=== PATIENT | female | born 1980 | race Caucasian/White ===

== ENCOUNTER 2018-10-18 16:16 | Emergency (ER) | payer MEDICAID, OTHER ==
[~2018-10-18] VITALS: Ht 162.6 cm; Wt 76.2 kg
--- NOTE | 2018-10-18 16:38 | ED Back Pain ---
General Chief Complaint: Back Problems Stated Complaint: BACK PAIN Source of Information: Patient Exam Limitations: No Limitations History of Present Illness Date Seen by Provider: Oct 18, 2018 Time Seen by Provider: 16:22 Initial Comments The patient presents to ER by private conveyance with an acute exacerbation of her chronic back pain for the past 15 years. She says this is been going on 2-3 days and she's been using ibuprofen with her last dose being yesterday with minimal relief. She has no inciting incident, back surgery or recent trauma to her back. She is not having any numbness tingling, saddle anesthesia, incontinence or hesitancy of urine or bowels. She's not having falls or difficulty walking or weakness. She says she usually uses Lyrica for her back pain and that works well but because of several missed appointments with her primary care doctor Dr. sofia she has not been able to get this refilled. She has an appointment on the , 9 days from now. She has not been on steroids recently and does not have a history of heart disease diabetes, GERD or other reason she couldn't take NSAIDs or steroids. Allergies and Home Medications Patient Home Medication List Home Medication List Reviewed: Yes Review of Systems Constitutional: No chills, No diaphoresis EENTM: No ear discharge, No hearing loss Respiratory: No cough, No short of breath Cardiovascular: No chest pain, No edema Gastrointestinal: No abdominal pain, No constipation, No nausea Genitourinary: No discharge, No dysuria, No frequency, No hesitancy : No Musculoskeletal: see HPI, back pain Past Flpmrrb-Wknvmr-Knxuzp Hx Patient Social History Alcohol Use: Rarely Uses Recreational Drug Use: No Smoking Status: Current Everyday Smoker Type Used: Cigarettes (1 ppd) Physical Exam Vital Signs Capillary Refill : Height, Weight, BMI Height: '" Weight: lbs. oz. kg; BMI Method: General Appearance: No Apparent Distress, WD/WN HEENT: PERRL/EOMI, TMs Normal, Normal ENT Inspection, Pharynx Normal, Moist Mucous Membranes Neck: Full Range of Motion, Normal Inspection Cardiovascular: Regular Rate, Rhythm, No Edema, Normal Peripheral Pulses Respiratory: No Accessory Muscle Use, No Respiratory Distress Back: No Muscle Spasm; Vertebral Tenderness (lumbar spine midline without significant paraspinous tenderness or muscle spasm) Neurologic/Psychiatric: Alert, Oriented x3, No Motor/Sensory Deficits, Other (symmetrical 2 out of 4 deep tendon patellar reflexes bilaterally) Skin: Normal Color, Warm/Dry Progress/Results/Core Measures Results/Orders Lab Results Laboratory Tests Test 10/18/18 16:25 Range/Units My Orders Orders - JOSE DAVID SALAZAR Ua Culture If Indicated (10/18/18 16:21) Urine Bedside (10/18/18 16:21) Progress Progress Note : Time: 16:36 Progress Note We explained to her that while we will not be restarting her [facility] would be happy to provide her with Toradol, prescription Naprosyn and IM Depo-Medrol. We've encouraged back brace, heating pads and topical creams. We will also encourage her to keep her follow-up appointment with the primary care doctor. Departure Impression Primary Impression: Lumbago without sciatica Qualified Codes: M54.5 - Low back pain; G89.29 - Other chronic pain Disposition: HOME, SELF-CARE Condition: Stable Departure-Patient Inst. Decision time for Depature: 16:37 Referrals: SELF,SHANIKA ELENA (PCP/Family) Primary Care Physician Patient Instructions: Low Back Pain (DC) Add. 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 Use topical creams such as icy hot, Aspercreme or Biofreeze. Use heating pads as needed for back pain. Start using Tylenol 1000 mg every 8 hours as needed for back pain. 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 The steroid shot will start working in 12-24 hours and lasts for about 5-7 days. All discharge instructions reviewed with patient and/or family. Voiced understanding. Scripts Naproxen (Naprosyn) 500 Mg Tablet 500 MG PO BID for 14 Days, #30 TAB 0 Refills Prov: JOSE DAVID SALAZAR 10/18/18 JOSE DAVID SALAZAR Oct 18, 2018 16:38
[2018-10-18 16:39] LABS: BILIRUBIN,URINE NEGATIVE (NEGATIVE); CLARITY,URINE CLEAR; COLOR,URINE YELLOW; GLUCOSE, URINE (UA) NEGATIVE (NEGATIVE); KETONES,URINE NEGATIVE (NEGATIVE); LEUKOCYTE ESTERASE ,URINE NEGATIVE (NEGATIVE); NITRITE,URINE NEGATIVE (NEGATIVE); PH,URINE 6.5 (5-9); PROTEIN,URINE NEGATIVE (NEGATIVE); UROBILINOGEN,URINE 0.2 MG/DL (NORMAL); WBC,URINE 0-2 /HPF
[2018-10-18] MEDS ORDERED: NAPR-1071 PO (16:39)
[2018-10-18 16:40] LABS: BACTERIA,URINE TRACE /HPF
[2018-10-18] MEDS ORDERED: methylPREDNISolone 40 MG/ML (DEPO MEDROL) VIAL IM ONE (16:45)
[2018-10-18] MEDS ORDERED: KETOROLAC 60 MG/2 ML VIAL IM ONE (16:45)
[2018-10-18 17:38] VITALS: BP 140/88
[2018-10-18] MEDS ORDERED: QUET300T71 (17:58)
[2018-10-18] MEDS ORDERED: Seroquel (17:58)
[2018-10-18] MEDS ORDERED: BUSP10TA95 (17:58)
[2018-10-18] MEDS ORDERED: LAMO25TA8 (17:58)
== END 2018-10-18 17:35 | disposition home or self-care (01) ==
LOC: ER FS 16:18
DX: M54.5 Low back pain (principal); G89.29 Other chronic pain; F17.210 Nicotine dependence, cigarettes, uncomplicated
CPT/HCPCS: 81000; 99284

== ENCOUNTER 2018-12-23 16:57 | Emergency (ER) | payer MEDICAID ==
[~2018-12-23] VITALS: Wt 72.0 kg
[~2018-12-23 16:57] MED LIST: BUSP10TA95; LAMO25TA8; NAPR-1071 PO; QUET300T71; Seroquel
--- NOTE | 2018-12-23 17:16 | ED Cough/URI ---
General Chief Complaint: Cough/Cold/Flu Symptoms Stated Complaint: ITCHY THROAT, COUGH Source: patient Exam Limitations: no limitations History of Present Illness Date Seen by Provider: Dec 23, 2018 Time Seen by Provider: 17:00 Initial Comments The patient is a 38-year-old female who presents for evaluation of sore throat and cough over the last 3 weeks. She does smoke cigarettes. I did explain to the patient to stop smoking cigarettes. She states the cough is dry and nonproductive. She denies any hemoptysis, fevers or chills, chest pain, shortness of breath, abdominal or back pain, palpitations, nausea or vomiting, dizziness or syncope. She is alert and oriented 4, calm, and appears to be in no distress this time. She is here with her significant other who also has a cough. Timing/Duration: week (3 weeks) Severity/Quality: dry cough Associated Symptoms: cough, sore throat Allergies and Home Medications Allergies Coded Allergies: sulfamethoxazole (Verified Allergy, Unknown, 12/23/18) trimethoprim (Verified Allergy, Unknown, 12/23/18) Home Medications Naproxen 500 Mg Tablet, 500 MG PO BID Prescribed by: JOSE DAVID SALAZAR on 10/18/18 7919 Patient Home Medication List Home Medication List Reviewed: Yes Review of Systems Review of Systems Constitutional: no symptoms reported EENTM: throat pain Respiratory: cough Cardiovascular: no symptoms reported Gastrointestinal: no symptoms reported Genitourinary: no symptoms reported Musculoskeletal: no symptoms reported Skin: no symptoms reported Psychiatric/Neurological: No Symptoms Reported Hematologic/Lymphatic: No Symptoms Reported Immunological/Allergic: no symptoms reported All Other Systems Reviewed Negative Unless Noted: Yes Past Krjmxue-Czhzve-Fcmpxd Hx Past Med/Social Hx: Reviewed Nursing Past Med/Soc Hx Patient Social History Type Used: Cigarettes Recent Foreign Travel: No Contact w/Someone Who Travel: No Recent Hopitalizations: No Seasonal Allergies Seasonal Allergies: No Past Medical History Surgeries: No Respiratory: No Cardiac: No Neurological: No Genitourinary: No Gastrointestinal: No Musculoskeletal: Yes Chronic Back Pain Endocrine: No HEENT: No Cancer: No Psychosocial: Yes Depression Integumentary: No Blood Disorders: No Physical Exam Vital Signs - First Documented Capillary Refill : Height: 5'4.00" Weight: 168lbs. oz. 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, no motor/sensory deficits, alert, normal mood/affect, oriented x 3 Skin: normal color, warm/dry Progress/Results/Core Measures Suspected Sepsis SIRS Temperature: Pulse: Respiratory Rate: Blood Pressure / Mean: Results/Orders Lab Results Laboratory Tests Test 12/23/18 17:10 Range/Units Group A Streptococcus Screen NEGATIVE NEGATIVE My Orders Orders - YA GARY DO Rapid Strep A Screen (12/23/18 17:00) Vital Signs/I&O 12/23/18 12/23/18 17:08 17:08 Temp 36.5 Pulse 93 Resp 20 B/P (MAP) 120/82 (95) Pulse Ox 97 O2 Delivery Room Air Room Air Capillary Refill : Progress Note : Progress Note @1740 - Patient updated on lab results which are unremarkable. The patient will go home with a prescription for Augmentin for a sinus infection. Advised patient to stop smoking and follow-up with her PCP in the next 1-2 days. Advised patient to return to the emergency Department immediately for new or worsening symptoms. Workup today fails to reveal any emergent pathology and the patient is stable for discharge. Departure Impression Primary Impression: Acute sinusitis Additional Impressions: Acute URI Pharyngitis Tobacco abuse Disposition: HOME, SELF-CARE Condition: Stable Departure-Patient Inst. Referrals: SELF,SHANIKA ELENA (PCP/Family) Primary Care Physician Patient Instructions: Acute Bronchitis, Adult (DC), Sinusitis, Adult (DC), Quitting Smoking, Viral Pharyngitis (DC) Add. Discharge Instructions: Take the prescribed medicine as directed. Follow-up with your doctor in the next 2-3 days[facility]. Stop smoking. Scripts Amoxicillin/Potassium Clav (Augmentin 875-125 Tablet) 1 Each Tablet 1 EACH PO BID for acute sinusitis for 10 Days, #20 TAB 0 Refills Prov: YA GARY DO 12/23/18 YA GARY DO Dec 23, 2018 17:16
[2018-12-23] MEDS ORDERED: AMOX-358 PO (17:45)
[2018-12-23 18:00] VITALS: BP 120/82
== END 2018-12-23 18:04 | disposition home or self-care (01) ==
LOC: EDUNIT# 16:57 → ER FS 16:58
DX: J01.90 Acute sinusitis, unspecified (principal); J02.9 Acute pharyngitis, unspecified; F32.9 Major depressive disorder, single episode, unspecified; F17.210 Nicotine dependence, cigarettes, uncomplicated; Z88.2 Allergy status to sulfonamides; Z88.1 Allergy status to other antibiotic agents
CPT/HCPCS: 87430; 99284

== ENCOUNTER 2019-07-17 15:20 | Emergency (ER) | payer MEDICAID ==
[~2019-07-17] VITALS: Ht 163 cm; Wt 67.6 kg
[~2019-07-17 15:20] MED LIST changes: +AMOX-358 PO
--- OUTSIDE RECORDS SUMMARY | 2019-07-17 15:27 | XMS REPORT | Continuity of Care Document ---
Author Organization Unknown Address Unknown Phone Unavailable Allergies Active Description Code Type Severity Reaction Onset Reported/Identified Relationship to Patient Clinical Status Yes No Known Drug Allergies [id number] Drug Allergy Unknown N/A 10/18/2018 Yes sulfamethoxazole [id number] Drug Allergy Unknown N/A 12/23/2018 Yes trimethoprim [id number] Drug Allergy Unknown N/A 12/23/2018 Medications There is no data. Problems Date Dx Coded Attending Type Code Diagnosis Diagnosed By 10/18/2018 JOSE DAVID SALAZAR MD Ot F17.210 NICOTINE DEPENDENCE, CIGARETTES, UNCOMPL 10/18/2018 JOSE DAVID SALAZAR MD Ot G89. 29 OTHER CHRONIC PAIN 10/18/2018 JOSE DAVID SALAZAR MD Ot M54. 5 LOW BACK PAIN 10/18/2018 JOSE DAVID SALAZAR MD Ot M54. 9 DORSALGIA, UNSPECIFIED 10/21/2018 JOSE DAVID SALAZAR MD Ot F17.210 NICOTINE DEPENDENCE, CIGARETTES, UNCOMPL 10/21/2018 JOSE DAVID SALAZAR MD Ot G89. 29 OTHER CHRONIC PAIN 10/21/2018 JOSE DAVID SALAZAR MD Ot M54. 5 LOW BACK PAIN 10/21/2018 JOSE DAVID SALAZAR MD Ot M54. 9 DORSALGIA, UNSPECIFIED 10/28/2018 JOSE DAVID SALAZAR MD Ot F17.210 NICOTINE DEPENDENCE, CIGARETTES, UNCOMPL 10/28/2018 JOSE DAVID SALAZAR MD Ot G89. 29 OTHER CHRONIC PAIN 10/28/2018 JOSE DAVID SALAZAR MD Ot M54. 5 LOW BACK PAIN 10/28/2018 JOSE DAVID SALAZAR MD Ot M54. 9 DORSALGIA, UNSPECIFIED 12/23/2018 COOKIE PANDYA DO Ot F17.210 NICOTINE DEPENDENCE, CIGARETTES, UNCOMPL 12/23/2018 COOKIE PANDYA DO Ot F32. 9 MAJOR DEPRESSIVE DISORDER, SINGLE EPISOD 12/23/2018 COOKIE PANDYA DO Ot J01. 90 ACUTE SINUSITIS, UNSPECIFIED 12/23/2018 YA LUTZ COOKIE B Ot J02. 9 ACUTE PHARYNGITIS, UNSPECIFIED 12/23/2018 COOKIE PANDYA DO Ot R05 COUGH 12/23/2018 COOKIE PANDYA DO Ot Z88. 1 ALLERGY STATUS TO OTHER ANTIBIOTIC AGENT 12/23/2018 YA LUTZ COOKIE B Ot Z88. 2 ALLERGY STATUS TO SULFONAMIDES STATUS 12/28/2018 COOKIE PANDYA DO Ot F17.210 NICOTINE DEPENDENCE, CIGARETTES, UNCOMPL 12/28/2018 COOKIE PANDYA DO Ot F32. 9 MAJOR DEPRESSIVE DISORDER, SINGLE EPISOD 12/28/2018 COOKIE PANDYA DO Ot J01. 90 ACUTE SINUSITIS, UNSPECIFIED 12/28/2018 COOKIE PANDYA DO Ot J02. 9 ACUTE PHARYNGITIS, UNSPECIFIED 12/28/2018 YA LUTZ COOKIE B Ot R05 COUGH 12/28/2018 YA LUTZ COOKIE B Ot Z88. 1 ALLERGY STATUS TO OTHER ANTIBIOTIC AGENT 12/28/2018 COOKIE PANDYA DO Ot Z88. 2 ALLERGY STATUS TO SULFONAMIDES STATUS Procedures There is no data. Results Test Result Range Complete urinalysis with reflex to cultu re - 10/18/18 16:25 Urine color determination YELLOW NRG Urine clarity determination CLEAR NR G Urine pH measurement by test strip 6.5 5-9 Specific gravity of urine by test strip <= 1.016-1.022 Urine protein assay by test strip, semi-quantitative NEGATIVE NEGATIVE Urine glucose detection by automated test strip NE GATIVE NEGATIVE Erythrocytes detection in urine sediment by light micr oscopy NEGATIVE NEGATIVE Urine ketones detection by automated test strip NE GATIVE NEGATIVE Urine nitrite detection by test strip NEGATIVE NEGATIVE Urine total bilirubin detection by test strip NEGA TIVE NEGATIVE Urine urobilinogen measurement by automated test strip (mass/volume) 0.2 mg/dL NORMAL Urine leukocyte esterase detection by dipstick NEG ATIVE NEGATIVE Automated urine sediment erythrocyte cou nt by microscopy (number/high power field) NONE NRG Automated urine sediment leukocyte count by microscopy (number/high power field) [HPF] NRG Bacteria detection in urine sediment by light microsco py TRACE NRG Squamous epithelial cells detection in u rine sediment by light microscopy 10-25 NRG Crystals detection in urine sediment by light microsco py NONE NRG Casts detection in urine sediment by light microscopy NONE NRG Mucus detection in urine sediment by light microscopy NEGATIVE NRG Complete urinalysis with reflex to culture NO NRG CMP - 10/27/18 16:28 GLUCOSE 84 mg/dL 65-99 UREA NITROGEN (BUN) 9 mg/dL 7-25 CREATININE 0.80 mg/dL 0.50-1.10 eGFR NON-AFR. UZBEK 93 mL/min/1.73m2 > OR = 60 eGFR 108 mL/min/1.73m2 > OR = 60 BUN/CREATININE RATIO NOT APPLICABLE (calc) 6-22 SODIUM 141 mmol/L 135-146 POTASSIUM 4.0 mmol/L 3.5-5.3 CHLORIDE 106 mmol/L 98-110 CARBON DIOXIDE 28 mmol/L 20-32 CALCIUM 9.4 mg/dL 8.6-10.2 PROTEIN, TOTAL 6.5 g/dL 6.1-8.1 ALBUMIN 3.9 g/dL 3.6-5.1 GLOBULIN 2.6 g/dL (calc) 1.9-3.7 ALBUMIN/GLOBULIN RATIO 1.5 (calc) 1.0-2. 5 BILIRUBIN, TOTAL 0.3 mg/dL 0.2-1.2 ALKALINE PHOSPHATASE 49 U/L 33-115 AST 13 U/L 10-30 ALT 13 U/L 6-29 VITAMIN D, 25-H - 10/27/18 16:28 VITAMIN D,25-OH,TOTAL,IA 27 ng/mL 30-10 0 Streptococcus pyogenes antigen detection - 12/23/18 17:10 Streptococcus pyogenes antigen detection NEGATIVE NEGATIVE Bacterial throat culture - 12/23/18 17:1 0 Bacterial throat culture NBS NRG Encounters ACCT No. Visit Date/Time Discharge Status Pt. Type Provider Facility Loc./Unit Complaint [id number] 06/14/2019 13:30:00 06/14/2019 23:59: 59 [facility] [id number] 10/27/2018 16:00:00 Document Registration [id number] 12/23/2018 16:58:00 18:04:00 DIS Emergency COOKIE PANDYA DO [facility] ER FS ITCHY THROAT, COUGH [id number] 10/18/2018 16:18:00 17:35:00 DIS Emergency JOSE DAVID SALAZAR MD [facility] ER FS BACK PAIN
--- NOTE | 2019-07-17 15:35 | ED Abdominal Pain ---
General Chief Complaint: Abdominal/GI Problems Stated Complaint: ABD PAIN Nursing Triage Note: Patient reports LLQ abdomen pain x 1 week reports emesis x 1 this morning. states had coitus last evening and had a spot of blood in her underwear this morning Sepsis Screen: No Definite Risk Source of Information: Patient, Old Records, RN/MD, RN Notes Reviewed Exam Limitations: No Limitations History of Present Illness Date Seen by Provider: July 17, 2019 Time Seen by Provider: 15:25 Initial Comments This patient is a 38-year-old female that presents to the emergency department complaining of lower abdominal pain on the left. Patient stasis me waxing and waning for the past 5 days. It seems to just be nagging. Patient's describes little bit of loose stool which she tries to have a bowel movement which is a little bit and has had this multiple times. Last bowel movement was this morning. Patient does have a history of your bowel syndrome. Patient does not appear to be acutely sick. We will do medical evaluation treatment is needed. Timing/Duration: 5-6 Days Severity/Quality: Mild Location: LLQ Radiation: No Radiation Allergies and Home Medications Allergies Coded Allergies: sulfamethoxazole (Verified Allergy, Unknown, 12/23/18) trimethoprim (Verified Allergy, Unknown, 12/23/18) Home Medications Amoxicillin/Potassium Clav 1 Each Tablet, 1 EACH PO BID Prescribed by: YA GARY on 12/23/18 1745 Naproxen 500 Mg Tablet, 500 MG PO BID Prescribed by: JOSE DAVID SALAZAR on 10/18/18 1639 Patient Home Medication List Home Medication List Reviewed: Yes Review of Systems Review of Systems Constitutional: No no symptoms reported; see HPI; No chills, No diaphoresis, No dizziness, No fever, No malaise, No weakness, No weight gain, No weight loss, No other EENTM: No No Symptoms Reported, No See HPI, No Blurred Vision, No Double Vision, No Eye Pain, No Eye Tearing, No Ear Drainage, No Ear Pain, No Mouth Pain, No Mouth Swelling, No Nose Congestion, No Nose Pain, No Throat Pain, No Throat Swelling, No Other Respiratory: Denies No Symptoms Reported, Denies See HPI, Denies Cough, Denies Orthopnea, Denies Shortness of Air, Denies SOA With Exertion, Denies SOA at Rest, Denies Stridor, Denies Wheezing, Denies Other Cardiovascular: Denies No Symptoms Reported, Denies See HPI, Denies Chest Pain, Denies Edema, Denies Irregular Heart Rate, Denies Lightheadedness, Denies Palpitations, Denies Syncope, Denies Other Gastrointestinal: See HPI, Abdominal Pain, Constipated, Diarrhea All Other Systems Reviewed Negative Unless Noted: Yes Past Deobvdx-Pivwes-Bbimof Hx Patient Social History Alcohol Use: Denies Use Recreational Drug Use: No Type Used: Cigarettes 2nd Hand Smoke Exposure: Yes Recent Foreign Travel: No Contact w/Someone Who Travel: No Recent Infectious Disease Expo: No Recent Hopitalizations: No Seasonal Allergies Seasonal Allergies: No Past Medical History Surgeries: No Respiratory: No Cardiac: No Neurological: No Genitourinary: No Gastrointestinal: No Musculoskeletal: Yes Chronic Back Pain Endocrine: No HEENT: No Cancer: No Psychosocial: Yes Depression Integumentary: No Blood Disorders: No Physical Exam Vital Signs Vital Signs - First Documented 07/17/19 15:26 Temp 37.2 Pulse 99 Resp 18 B/P (MAP) 127/86 (100) Pulse Ox 97 Capillary Refill : Less Than 3 Seconds Height/Weight/BMI Height: 5'4.00" Weight: 168lbs. oz. 76.323715fu; 25.00 BMI Method:Stated General Appearance: WD/WN, no apparent distress HEENT: PERRL/EOMI, normal ENT inspection, TMs normal, pharynx normal Neck: non-tender, full range of motion, supple, normal inspection Respiratory: chest non-tender, lungs clear, normal breath sounds, no respiratory distress, no accessory muscle use Cardiovascular: normal peripheral pulses, regular rate, rhythm, no edema, no gallop, no JVD, no murmur Gastrointestinal: normal bowel sounds, non tender, soft, no organomegaly, no pulsatile mass Extremities: normal range of motion, non-tender, normal inspection, no pedal edema, no calf tenderness, normal capillary refill Skin: normal color, warm/dry Progress/Results/Core Measures Results/Orders Lab Results Laboratory Tests Test 07/17/19 16:05 Range/Units Urine Color YELLOW Urine Clarity CLEAR Urine pH 8.0 5-9 Urine Specific [place] 1.015 L 1.016-1.022 Urine Protein NEGATIVE NEGATIVE Urine Glucose (UA) NEGATIVE NEGATIVE Urine Ketones TRACE H NEGATIVE Urine Nitrite NEGATIVE NEGATIVE Urine Bilirubin NEGATIVE NEGATIVE Urine Urobilinogen 2.0 < = 1.0 MG/DL Urine Leukocyte Esterase NEGATIVE NEGATIVE Urine RBC (Auto) NEGATIVE NEGATIVE Urine RBC NONE /HPF Urine WBC NONE /HPF Urine Squamous Epithelial Cells 5-10 /HPF Urine Crystals NONE /LPF Urine Bacteria TRACE /HPF Urine Casts NONE /LPF Urine Mucus NONE /LPF Urine Culture Indicated NO Urine Opiates Screen NEGATIVE NEGATIVE Urine Oxycodone Screen NEGATIVE NEGATIVE Urine Methadone Screen NEGATIVE NEGATIVE Urine Propoxyphene Screen NEGATIVE NEGATIVE Urine Barbiturates Screen NEGATIVE NEGATIVE Ur Tricyclic Antidepressants Screen NEGATIVE NEGATIVE Urine Phencyclidine Screen NEGATIVE NEGATIVE Urine Amphetamines Screen NEGATIVE NEGATIVE Urine Methamphetamines Screen NEGATIVE NEGATIVE Urine Benzodiazepines Screen NEGATIVE NEGATIVE Urine Cocaine Screen NEGATIVE NEGATIVE Urine Cannabinoids Screen NEGATIVE NEGATIVE My Orders Orders - NELLY PANG MD Abdomen Flat & Upright/Decub (07/17/19 15:31) Urinalysis (07/17/19 15:31) Hcg,Quantitative (07/17/19 15:35) Drug Screen Stat (Urine) (07/17/19 15:41) Vital Signs/I&O 07/17/19 15:26 Temp 37.2 Pulse 99 Resp 18 B/P (MAP) 127/86 (100) Pulse Ox 97 Blood Pressure Mean: 100 Progress Progress Note : Time: 16:35 Progress Note Negative evaluation in the emergency department. Patient has long history of irritable bowel syndrome. We'll place the patient on Bentyl as needed for abdominal pain. Patient's encourage by mouth fluids soft mechanical diet. Follow-up with PCP in 2-3 days. High-fiber diet. Departure Impression Primary Impression: Abdominal pain Additional Impression: IBS (irritable bowel syndrome) Disposition: 01 HOME, SELF-CARE Condition: Stable Departure-Patient Inst. Decision time for Depature: 16:41 Referrals: SHANIKA RODRIGUEZ MD (PCP/Family) Primary Care Physician Patient Instructions: Irritable Bowel Syndrome (DC), IBS Diet Add. Discharge Instructions: We'll place the patient on Bentyl as needed for abdominal pain. Patient's encourage by mouth fluids soft mechanical diet. Follow-up with PCP in 2-3 days. High-fiber diet. All discharge instructions reviewed with patient and/or family. Voiced understa nding. Scripts Dicyclomine HCl (Dicyclomine HCl) 20 Mg Tablet 20 MG PO BID for 10 Days, #20 TAB 0 Refills Prov: NELLY PANG MD 07/17/19 NELLY PANG MD July 17, 2019 15:35
[2019-07-17 16:20] LABS: BACTERIA,URINE TRACE /HPF; BILIRUBIN,URINE NEGATIVE (NEGATIVE); CLARITY,URINE CLEAR; COLOR,URINE YELLOW; GLUCOSE, URINE (UA) NEGATIVE (NEGATIVE); KETONES,URINE TRACE (NEGATIVE); LEUKOCYTE ESTERASE ,URINE NEGATIVE (NEGATIVE); NITRITE,URINE NEGATIVE (NEGATIVE); PROTEIN,URINE NEGATIVE (NEGATIVE)
[2019-07-17 16:25] LABS: AMPHETAMINE SCREEN, URINE NEGATIVE (NEGATIVE); BARBITURATE SCREEN URINE NEGATIVE (NEGATIVE); BENZODIAZEPINES SCREEN URINE NEGATIVE (NEGATIVE); CANNABINOID SCREEN, URINE NEGATIVE (NEGATIVE); COCAINE SCREEN URINE NEGATIVE (NEGATIVE); METHADONE STAT NEGATIVE (NEGATIVE); METHAMPHETAMINE SCREEN URINE S NEGATIVE (NEGATIVE); OPIATE SCREEN URINE NEGATIVE (NEGATIVE); OXYCODONE STAT NEGATIVE (NEGATIVE); PROPOXYPHENE STAT NEGATIVE (NEGATIVE); TRICYCLIC ANTIDEPRESSANTS SCRE NEGATIVE (NEGATIVE)
--- NOTE | 2019-07-17 16:26 | Diagnostic Imaging Report ---
INDICATION: Left lower quadrant abdominal pain x 1 week. Emesis. TECHNIQUE: Supine and upright view of the abdomen, 4:14 p.m. CORRELATION STUDY: None. FINDINGS: Imaging of the abdomen demonstrates the bowel gas pattern to be unremarkable and without evidence for obstruction. A few scattered gas-filled loops of small bowel are present. No significant differential air-fluid levels. No evidence for free air. No pathologic intraabdominal calcifications. IMPRESSION: Nonobstructive appearing bowel gas pattern. Mild ileus pattern not excluded. Dictated by: Dictated on workstation # [id number]
[2019-07-17] MEDS ORDERED: DICY20TA10 PO (16:44)
[2019-07-17 16:48] VITALS: BP 127/86
== END 2019-07-17 16:48 | disposition home or self-care (01) ==
LOC: EDUNIT# 15:20 → ER FS 15:22
DX: K58.9 Irritable bowel syndrome, unspecified (principal); Z88.2 Allergy status to sulfonamides; Z88.1 Allergy status to other antibiotic agents; Z77.22 Contact with and (suspected) exposure to environmental tobacco smoke (acute) (chronic)
CPT/HCPCS: 74019; 80306; 81000

== ENCOUNTER 2019-11-07 16:45 | Emergency (ER) | payer MEDICAID ==
[~2019-11-07] VITALS: Ht 162.6 cm; Wt 67.3 kg
[~2019-11-07 16:45] MED LIST changes: +DICY20TA10 PO
[2019-11-07] MEDS ORDERED: NS IV 1000 ML 1,000 ML IV SCH (17:13)
[2019-11-07] MEDS ORDERED: ACETAMINOPHEN 500 MG TAB (TYLENOL) PO ONE (17:15)
[2019-11-07] MEDS ORDERED: PROMETHAZINE INJ 25 MG/ML (PHENERGAN) AMP IVP ONE (17:15)
[2019-11-07 17:52] LABS: BACTERIA,URINE MODERATE /HPF; BILIRUBIN,URINE NEGATIVE (NEGATIVE); CLARITY,URINE CLEAR; COLOR,URINE DARK YELLOW; GLUCOSE, URINE (UA) NEGATIVE (NEGATIVE); KETONES,URINE 1+ (NEGATIVE); LEUKOCYTE ESTERASE ,URINE NEGATIVE (NEGATIVE); NITRITE,URINE NEGATIVE (NEGATIVE); PROTEIN,URINE NEGATIVE (NEGATIVE)
[2019-11-07 17:53] LABS: SQUAMOUS EPITHELIAL CELL,UR 25-50 /HPF
[2019-11-07 18:04] LABS: POTASSIUM 4.1 MMOL/L (3.6-5.0); SODIUM 139 MMOL/L (135-145)
[2019-11-07 18:05] LABS: BUN/CREATININE RATIO 11; CALCIUM 8.8 MG/DL (8.5-10.1); CARBON DIOXIDE 20 MMOL/L (21-32); CHLORIDE 106 MMOL/L (98-107); CREATININE SERUM 0.54 MG/DL (0.60-1.30); GFR ESTIMATED > 60; GLUCOSE 85 MG/DL (70-105)
--- NOTE | 2019-11-07 19:32 | ED General ---
General Chief Complaint: Female Reproductive Nursing Triage Note: Patient states she is 9 weeks with twins, states she has been nauseous today and unable to keep down any fluids. She states she began having lower abdominal cramping early this morning. She states she has had cramping similar to this during this when she becomes dehydrated. She denies any vaginal bleeding. Nursing Sepsis Screen: No Definite Risk History of Present Illness Date Seen by Provider: Nov 07, 2019 Time Seen by Provider: 17:00 Initial Comments The patient is a 39-year-old female who is currently about 9 weeks estimated gestational age by ultrasound dating with a twin . She presents for evaluation of nausea with 2 episodes of nonbloody vomiting and decreased by mouth intake since earlier today. Associated crampy lower quadrant abdominal discomfort intermittently today, although none now. No associated fevers, hematemesis, hematochezia, melena, upper respiratory congestion/rhinorrhea, cough, shortness of breath or chest pain of any kind, right-sided abdominal pain, flank pain, midline back pain, dysuria or hematuria, vaginal discharge or bleeding, changes in bowel habits. Patient has close follow-up with obstetrics immediately after the long weekend. No therapy within the 6-8 hours prior to arrival. Patient tried some Tylenol this morning and states it was not fully effective. No antinausea medicine at home. Allergies and Home Medications Allergies Coded Allergies: sulfamethoxazole (Verified Allergy, Unknown, 12/23/18) trimethoprim (Verified Allergy, Unknown, 12/23/18) Home Medications Amoxicillin/Potassium Clav 1 Each Tablet, 1 EACH PO BID Prescribed by: YA GARY on 12/23/18 1745 Dicyclomine HCl 20 Mg Tablet, 20 MG PO BID Prescribed by: NELLY PANG on 07/17/19 1644 Naproxen 500 Mg Tablet, 500 MG PO BID Prescribed by: JOSE DAVID SALAZAR on 10/18/18 1639 Patient Home Medication List Home Medication List Reviewed: Yes Review of Systems Review of Systems Constitutional: see HPI All Other Systems Reviewed Negative Unless Noted: Yes Past Taphmga-Llwcev-Ruilyd Hx Past Med/Social Hx: Reviewed Nursing Past Med/Soc Hx Patient Social History Type Used: Cigarettes 2nd Hand Smoke Exposure: Yes Recent Foreign Travel: No Contact w/Someone Who Travel: No Recent Infectious Disease Expo: No Recent Hopitalizations: No Seasonal Allergies Seasonal Allergies: No Past Medical History Surgeries: No Respiratory: No Cardiac: No Neurological: No Genitourinary: No Gastrointestinal: No Musculoskeletal: Yes Chronic Back Pain Endocrine: No HEENT: No Cancer: No Psychosocial: Yes Depression Integumentary: No Blood Disorders: No Family Medical History Reviewed Nursing Family Hx Physical Exam Vital Signs Vital Signs - First Documented 11/07/19 17:00 Temp 36.8 Pulse 79 Resp 16 B/P (MAP) 118/58 (78) Pulse Ox 99 O2 Delivery Room Air Capillary Refill : Less Than 3 Seconds Height, Weight, BMI Height: 5'4.00" Weight: 168lbs. oz. 76.032424oo; 25.00 BMI Method:Stated General Appearance: No Apparent Distress Comments This is a middle-aged female appearing nontoxic and in no acute distress. Head is normocephalic and atraumatic. Neck is supple and nontender. Oropharynx is moist. Lungs are clear to auscultation at all stations. There is a normal S1 and S2 without rubs or gallops and capillary refill is appropriate, less than 2 seconds globally. Abdomen is soft, nontender and nondistended. Skin is warm and dry without cyanosis, clubbing or edema. Psychiatrically, the patient demonstrates appropriate mood and affect and is alert. Progress/Results/Core Measures Suspected Sepsis Recent Fever Within 48 Hours: No Infection Criteria Present: None New/Unexplained Altered Menta: No Sepsis Screen: No Definite Risk SIRS Temperature: Pulse: 79 Respiratory Rate: 16 Blood Pressure 118 /58 Mean: 78 Laboratory Tests 11/07/19 17:30: Creatinine 0.54L Results/Orders Lab Results Laboratory Tests Test 11/07/19 17:30 Range/Units Urine Color DARK YELLOW Urine Clarity CLEAR Urine pH 6.0 5-9 Urine Specific [place] 1.025 H 1.016-1.022 Urine Protein NEGATIVE NEGATIVE Urine Glucose (UA) NEGATIVE NEGATIVE Urine Ketones 1+ H NEGATIVE Urine Nitrite NEGATIVE NEGATIVE Urine Bilirubin NEGATIVE NEGATIVE Urine Urobilinogen 1.0 < = 1.0 MG/DL Urine Leukocyte Esterase NEGATIVE NEGATIVE Urine RBC (Auto) NEGATIVE NEGATIVE Urine RBC NONE /HPF Urine WBC 2-5 /HPF Urine Squamous Epithelial Cells 25-50 H /HPF Urine Crystals NONE /LPF Urine Bacteria MODERATE H /HPF Urine Casts NONE /LPF Urine Mucus SMALL H /LPF Urine Culture Indicated NO Sodium Level 139 135-145 MMOL/L Potassium Level 4.1 3.6-5.0 MMOL/L Chloride Level 106 98-107 MMOL/L Carbon Dioxide Level 20 L 21-32 MMOL/L Anion Gap 13 5-14 MMOL/L Blood Urea Nitrogen 6 L 7-18 MG/DL Creatinine 0.54 L 0.60-1.30 MG/DL Estimat Glomerular Filtration Rate > 60 BUN/Creatinine Ratio 11 Glucose Level 85 70-105 MG/DL Calcium Level 8.8 8.5-10.1 MG/DL My Orders Orders - CHRIS COYNE MD Promethazine Injection (Phenergan Injec (11/07/19 17:15) Ns Iv 1000 Ml (Sodium Chloride 0.9%) (11/07/19 17:13) Basic Metabolic Panel (11/07/19 17:13) Ua Culture If Indicated (11/07/19 17:13) Acetaminophen Tablet (Tylenol Tablet) (11/07/19 17:15) Medications Given in ED Current Medications Medications Dose Ordered Sig/Emy Route Start Time Stop Time Status Last Admin Dose Admin Promethazine HCl 25 mg ONCE ONCE IVP 11/07/19 17:15 11/07/19 17:16 DC 11/07/19 17:38 25 MG Vital Signs/I&O 11/07/19 17:00 Temp 36.8 Pulse 79 Resp 16 B/P (MAP) 118/58 (78) Pulse Ox 99 O2 Delivery Room Air Capillary Refill : Less Than 3 Seconds Blood Pressure Mean: 78 Progress Note : Time: 19:29 Progress Note Well-appearing 39-year-old female currently with twins, confirmed intrauterine by ultrasound testing last week, who presents with intermittent abdominal cramping discomfort, although none now, nausea and decreased by mouth intake today. Basic chemistries unremarkable. Urinalysis with evidence of bacteriuria which we will treat with Macrobid. Patient feels much, much better after Phenergan, Tylenol and IV fluids. Pain and nausea are resolved. She has tolerated by mouth. We will discharge home with instructions to follow-up very closely with her build master is abdiely scheduled immediately after the weekend and return to the emergency department immediately if symptoms worsen or if other new symptoms of concern develop. All questions are answered. Departure Impression Primary Impression: Abdominal pain affecting , antepartum Additional Impressions: Nausea/vomiting in Bacteriuria during in first trimester Disposition: HOME, SELF-CARE Condition: Improved Departure-Patient Inst. Referrals: SELF,SHANIKA ELENA (PCP/Family) Primary Care Physician Patient Instructions: Urinary Tract Infection, Adult (DC), Nausea and Vomiting, Adult (DC) Add. Discharge Instructions: Follow-up very closely with your build master in the next 2-4 days for a reevaluation of symptoms and a discussion of next steps in care. You may take Phenergan as needed every 6 hours for nausea. You may take Tylenol as needed for discomfort. Return plenty of fluids and get plenty of rest. Return right away with worsening symptoms of any kind or with any other new symptoms of concern. Scripts Promethazine HCl (Promethazine Tablet) 25 Mg Tablet 25 MG PO Q6H PRN for NAUSEA/VOMITING, #13 TAB Prov: CHRIS COYNE MD 11/07/19 Nitrofurantoin Monohyd/M-Cryst (Macrobid 100 mg Capsule) 100 Mg Capsule 1 TAB PO BID for 7 Days, #14 CAP Prov: CHRIS COYNE MD 11/07/19 CHRIS COYNE MD Nov 07, 2019 19:31
[2019-11-07] MEDS ORDERED: NITR-65 PO (19:33)
[2019-11-07] MEDS ORDERED: PROM25TA14 PO (19:33)
[2019-11-07 19:46] VITALS: BP 138/72
== END 2019-11-07 19:46 | disposition home or self-care (01) ==
LOC: EDUNIT# 16:45 → ER FS 16:46
DX: O26.891 Other specified pregnancy related conditions, first trimester (principal); R10.9 Unspecified abdominal pain; R11.2 Nausea with vomiting, unspecified; R82.71 Bacteriuria; Z3A.09 9 weeks gestation of pregnancy; Z88.2 Allergy status to sulfonamides; Z88.1 Allergy status to other antibiotic agents; Z77.22 Contact with and (suspected) exposure to environmental tobacco smoke (acute) (chronic)
CPT/HCPCS: 36415; 80048; 81000

== ENCOUNTER 2020-03-28 12:45 | Outpatient (CLI) | payer MEDICAID ==
[~2020-03-28] VITALS: Ht 162.6 cm; Wt 66.8 kg
[2020-03-28 12:30] VITALS: BP_SYST 119; BP_DIAS 78; BP_DIAS 87
--- NOTE | 2020-03-28 12:30 | NUR ---
DAINA ROSALES presented to unit via [facility], with c/o LEAKING FLUID. DAINA ROSALES to bed. EFHM and TOCO applied, VS taken. DAINA ROSALES oriented to bed controls, call light, TV, heat, and A/C controls.
[~2020-03-28 12:45] MED LIST changes: -BUSP10TA95; +BUSP10TA95 PO; +NITR-65 PO; +PROM25TA14 PO
--- NOTE | 2020-03-28 12:52 | NUR ---
Dr. Mercer on unit. Bedside US performed to evaluate fluid.
--- NOTE | 2020-03-28 12:59 | NUR ---
Dr. Kam notified of patient's arrival, complaints, and [facility]'s request to notify her. New orders received.
[2020-03-28] MEDS ORDERED: BETAMETHASONE ACE/NA PHOS 6 MG/ML (CELESTONE SOLUSPAN) IM SCH (13:15)
--- NOTE | 2020-03-28 13:30 | NUR ---
Speculum exam performed, FERN obtained and sent to lab.
[2020-03-28 14:05] VITALS: BP 137/67
[2020-03-28] MEDS ORDERED: PYRI25TA3 PO (14:12)
[2020-03-28] MEDS ORDERED: PREN1TAB79 PO (14:12)
--- NOTE | 2020-03-28 15:42 | Diagnostic Imaging Report ---
INDICATION: Twin gestation. Evaluate for ruptured membranes. COMPARISON: None available. TECHNIQUE: Transabdominal sonographic imaging of the gravid uterus was performed. FINDINGS: There appears to be a dichorionic diamniotic twin gestation present. Fetus A is breech in presentation, positioned to the maternal left, and has a heart rate of 135 BPM. The placenta is anteriorly located and the ITA is normal at 7.4 cm. Fetus B is in cephalic presentation located to the maternal right and has a heart rate of 140 BPM. The ITA is 9.0 cm. IMPRESSION: Live twin gestation with normal ITA of both gestations. Dictated by: Dictated on workstation # [id number]
--- NOTE | 2020-03-28 16:23 | NUR ---
Dr. Kam updated on patient's status. New orders received.
--- NOTE | 2020-03-28 16:31 | NUR ---
IV DC'd, tip intact.
--- NOTE | 2020-03-28 16:45 | NUR ---
Discharge instructions and medications reviewed with patient both written and verbally. Patient verbalizes understanding and questions answered.
--- NOTE | 2020-03-28 16:51 | NUR ---
Patient discharged at this time and taken to ER via wheelchair to wait for her ride to come and pick her up. No signs or symptoms of distress noted.
--- NOTE | 2020-03-29 08:07 | Physician Query-Final Dx ---
Clinic Account Progress/Dx Physician Query: Please give diagnosis Please include # weeks gestation Date of Service Mar 28, 2020 at 12:45 CAREY JEAN Mar 29, 2020 08:07
== END 2020-03-28 16:51 | disposition home or self-care (01) ==
LOC: LDRP 12:45 → WSo 12:45
PROVIDERS: ATTEND Family Medicine
DX: Z03.71 Encounter for suspected problem with amniotic cavity and membrane ruled out (principal)
CPT/HCPCS: 76810; 76815; Q0114; 36415; 89060; 96372; 99214

== ENCOUNTER 2020-05-02 17:02 | Inpatient (IN) | payer MEDICAID ==
[2020-05-02] VITALS (12 sets, daily range): BP systolic 119–167; BP diastolic 65–94
[~2020-05-02] VITALS: Ht 162.6 cm; Wt 70.4 kg
[~2020-05-02 17:02] MED LIST changes: +PREN1TAB79 PO; +PYRI25TA3 PO
[2020-05-02] MEDS ORDERED: D5 LR IV SOLUTION 0 ML IV ONE (18:26)
[2020-05-02] MEDS ORDERED: BETAMETHASONE ACE/NA PHOS 6 MG/ML (CELESTONE SOLUSPAN) ONE ×2 (18:27→18:43)
[2020-05-02] MEDS ORDERED: LACTATED RINGERS 1,000 ML IV ONE (18:27)
[2020-05-02] MEDS ORDERED: METOCLOPRAMIDE INJ 10 MG/2 ML (REGLAN) ONE (18:54)
[2020-05-02] MEDS ORDERED: CITRIC ACID/SOB CIT (BICITRA) 30 ML UDC ONE (18:54)
[2020-05-02] MEDS ORDERED: ceFAZolin 2 GM IV Premixed 50 ML ONE (18:54)
[2020-05-02] MEDS ORDERED: FAMOTIDINE 20MG/2ML IV (PEPCID) ONE (18:55)
[2020-05-02] MEDS ORDERED: LACTATED RINGERS 1,000 ML IV PRN (19:00)
[2020-05-02] MEDS ORDERED: CITRIC ACID/SOB CIT (BICITRA) 30 ML UDC PO ONE (19:00)
[2020-05-02] MEDS ORDERED: FAMOTIDINE 20MG/2ML IV (PEPCID) IV ONE (19:00)
[2020-05-02] MEDS ORDERED: METOCLOPRAMIDE INJ 10 MG/2 ML (REGLAN) IV ONE (19:00)
[2020-05-02 19:09] LABS: BASOPHILS % (AUTO) 0 % (0-10); EOSINOPHILS # (AUTO) 0.1 10^3/uL (0.0-0.3); EOSINOPHILS % (AUTO) 1 % (0-10); HEMATOCRIT 38 % (35-52); HEMOGLOBIN 13.4 g/dL (11.5-16.0); LYMPHOCYTES # (AUTO) 3.1 10^3/uL (1.0-4.0); LYMPHOCYTES % (AUTO) 25 % (12-44); MEAN CORPUSCULAR HEMOGLOBIN 31 pg (25-34); MEAN CORPUSCULAR HGB CONC 35 g/dL (32-36); MEAN CORPUSCULAR VOLUME 87 fL (80-99); MEAN PLATELET VOLUME 12.4 fL (9.0-12.2); MONOCYTES # (AUTO) 1.2 10^3/uL (0.0-1.0); MONOCYTES % (AUTO) 9 % (0-12); NEUTROPHILS # (AUTO) 8.1 10^3/uL (1.8-7.8); NEUTROPHILS % (AUTO) 65 % (42-75); PLATELET COUNT 227 10^3/uL (130-400); WHITE BLOOD COUNT 12.6 10^3/uL (4.3-11.0)
--- NOTE | 2020-05-02 19:09 | History & Physical-OB/GYN ---
PHIL MEYER MED STUDENT 05/02/201908: OB - Chief Complaint & HPI Date/Time Date of Admission: Date of Admission: Date seen by a Provider: May 02, 2020 Time Seen by a Provider: 18:25 Chief Complaint/History OB-Reason for Admission/Chief: Labor Hx : 5 Hx Para: 3 Hx Last Menstrual Period: 09/01/2019 Expected Date of Delivery: Jun 07, 2020 Gestational Age in Weeks: 34 Gestational Age in Days: 6 Admission Nurse Assessment Rev: Yes Allergies and Home Medications Allergies Coded Allergies: sulfamethoxazole (Verified Allergy, Unknown, 12/23/18) trimethoprim (Verified Allergy, Unknown, 12/23/18) Home Medications Buspirone HCl 10 Mg Tablet, 10 MG PO BID, (Reported) Docusate Sodium 100 Mg Capsule, 100 MG PO BID PRN for CONSTIPATION-1ST LINE Prescribed by: DARRELL MANZO on 05/02/201952 Hydrocodone Bit/Acetaminophen 1 Tab Tab, 1-2 EA PO Q6HR PRN for PAIN-MODERATE (5-7) Prescribed by: DARRELL MANZO on 05/02/201952 Ibuprofen 600 Mg Tablet, 600 MG PO Q6H Prescribed by: DARRELL MANZO on 05/02/201952 Vit W-Ca,Fe,FA(<1 mg) 1 Each Tablet, 1 EACH PO DAILY, (Reported) Pyridoxine HCl 25 Mg Tablet, 25 MG PO DAILY, (Reported) Patient Home Medication List Home Medication List Reviewed: Yes OB - History Hx of Present Care: Yes Ultrasounds: Normal mid trimester US Obstetrical Complications: None Medical Complications: Psychiatric Information Induced Hypertension: No Maternal Gestational Diabetes: No Hemorrhage: No Obstetrical History Hx : 5 Hx Para: 3 Hx # Term Pregnancies: 3 Hx # Pregnancies: 0 Hx Termination: No Hx Total # of Abortions (Spona: 1 Hx Multiple Gestation: No Hx Ectopic : No Hx Complication: No Hx Induced Hypertens: No Hx Maternal Gestational Diabet: No Hx Hemorrhage: No Delivery History Hx Section: No Hx Vaginal Delivery Post C-Sec: No Patient Past Medical History Bipolar disorder with psycotic features Anxiety IBS Cigarette nicotine dependence Chronic midline low back pain without siatica Social History/Family History Alcohol Use: Denies Use Recreational Drug Use: No Smoking Cessation: Current every day smoker 2nd Hand Smoke Exposure: Yes Immunizations Date of Influenza Vaccine: Dec 02, 2019 OB - Admission Exam Physical Exam Vitals: Vital Signs 05/02/20 18:18 Temp 37.2 Pulse 80 Resp 18 O2 Delivery Room Air HEENT: NCAT (Missing several teeth ) Abdomen: Gravid Extremities: Normal Cervical Dilatation: 5cm Membranes: Intact Heart Rate: 140's Decelerations: Variable Decelerations Short Term Variability: Present Videotape Operator Variability: Average (6-25) Contractions on Admission: < 5 Minutes Apart Intensity: Mild OB - Assessment/Plan/Diagnosis Assessment Assessment: active labor Admission Status: Inpatient Order (span 2 midnights) SILVIA PABLO MD 05/03/202114: Allergies and Home Medications Allergies Coded Allergies: sulfamethoxazole (Verified Allergy, Unknown, 12/23/18) trimethoprim (Verified Allergy, Unknown, 12/23/18) Home Medications Buspirone HCl 10 Mg Tablet, 10 MG PO BID, (Reported) Docusate Sodium 100 Mg Capsule, 100 MG PO BID PRN for CONSTIPATION-1ST LINE Prescribed by: DARRELL MANZO on 05/02/201952 Hydrocodone Bit/Acetaminophen 1 Tab Tab, 1-2 EA PO Q6HR PRN for PAIN-MODERATE ( 5-7) Prescribed by: DARRELL MANZO on 05/02/201952 Ibuprofen 600 Mg Tablet, 600 MG PO Q6H Prescribed by: DARRELL MANZO on 05/02/201952 Vit W-Ca,Fe,FA(<1 mg) 1 Each Tablet, 1 EACH PO DAILY, (Reported) Pyridoxine HCl 25 Mg Tablet, 25 MG PO DAILY, (Reported) OB - Assessment/Plan/Diagnosis Assessment Admission Dx labor at 34 weeks gestation Twin gestation Abnormal presentation Admission Status: Inpatient Order (span 2 midnights) Reason for Inpatient Admission: and course Plan Plan: Section Supervisory-Addendum Brief Verification & Attestation Participated in pt care: history, MDM Personally performed: history, MDM Care discussed with: Medical Student Procedures: n/a I saw and obtained history on this patient and agree with student documentation. Cervical exam per nursing. Twin gestation with footling breech presenting twin in labor, discussed with Dr. Manzo and admitted for . PHIL MEYER MED STUDENT May 02, 2020 19:09 ISLVIA PABLO MD May 03, 2020 21:15
[2020-05-02] MEDS ORDERED: OXYTOCIN PRE-MIX DRIP 500 ML IV ONE (19:18)
[2020-05-02] MEDS ORDERED: ONDANSETRON 4 MG/2 ML (SDV) Z0FRAN ONE (19:18)
[2020-05-02] MEDS ORDERED: fentaNYL INJECTION 100 MCG/2 ML AMP ONE (19:19)
--- NOTE | 2020-05-02 19:29 | Consultation ---
History of Present Illness History of Present Illness Patient Consulted On(mine/time) 05/02/20 19:23 Date Seen by Provider: May 02, 2020 Time Seen by Provider: 19:00 Reason for Visit: labor History of Present Illness 39 yo female presents with PTL making cervical change to 5 cm. Malpresentation noted on ultrasound, breech/vertex. Allergies and Home Medications Allergies Coded Allergies: sulfamethoxazole (Verified Allergy, Unknown, 12/23/18) trimethoprim (Verified Allergy, Unknown, 12/23/18) Home Medications Buspirone HCl 10 Mg Tablet, 10 MG PO BID, (Reported) Vit W-Ca,Fe,FA(<1 mg) 1 Each Tablet, 1 EACH PO DAILY, (Reported) Pyridoxine HCl 25 Mg Tablet, 25 MG PO DAILY, (Reported) Patient Home Medication List Home Medication List Reviewed: Yes Past Lkqdpgh-Lojxgs-Bcgrny Hx Patient Social History Alcohol Use: Denies Use Smoking Status: Current Everyday Smoker Type Used: Cigarettes 2nd Hand Smoke Exposure: Yes Recent Hopitalizations: No Physical Abuse: No Sexual Abuse: No Mistreated: No Fear: No Immunizations Up To Date Date of Influenza Vaccine: Dec 02, 2019 Seasonal Allergies Seasonal Allergies: No Past Medical History Surgeries: No Respiratory: No Cardiac: No Neurological: No Expected Date of Delivery: Jun 07, 2020 Hx : 5 Hx Para: 3 Hx Total # of Abortions (Sp): 1 Genitourinary: No Gastrointestinal: No Musculoskeletal: Yes Chronic Back Pain Endocrine: No HEENT: No Cancer: No Psychosocial: Yes Depression Integumentary: No Blood Disorders: No Review of Systems-General EENTM: see HPI Respiratory: see HPI Cardiovascular: see HPI Gastrointestinal: see HPI Genitourinary: see HPI : Yes Expected Date of Delivery: Jun 06, 2020 Musculoskeletal: see HPI Skin: see HPI Psychiatric/Neurological: See HPI All Other Systems Reviewed Negative Unless Noted: Yes Physical Exam-General Problems Physical Exam Vital Signs Vital Signs - First Documented 05/02/20 18:18 Temp 37.2 Pulse 80 Resp 18 O2 Delivery Room Air Capillary Refill : Less Than 3 Seconds General Appearance: WD/WN HEENT: PERRL/EOMI Neck: non-tender Respiratory: chest non-tender Cardiovascular: regular rate, rhythm Gastrointestinal: other (gravid abdomen ( 40 week size)) Back: no CVA tenderness Extremities: normal range of motion, non-tender Neurologic/Psychiatric: oriented x 3 Assessment/Plan Assessment/Plan Admission Diagnosis/Plan 39 yo twin gestation at 34.6 Active labor Malpresentation GBS unknown P: Proceed with emergent Admission Status: Inpatient Order (span 2 midnights) Reason for Inpatient Admission: for 34.6 week twins DARRELL MANZO DO May 02, 2020 19:29
[2020-05-02] MEDS ORDERED: ONDANSETRON 4 MG/2 ML (SDV) Z0FRAN IVP PRN (19:45)
[2020-05-02] MEDS ORDERED: MEASLES,MUMPS,RUBELLA 1 EA INJ SC SCH (19:45)
[2020-05-02] MEDS ORDERED: TETANUS,DIPTH,PERTUSS P/F (BOOSTRIX) 0.5 ML VIAL IM SCH (19:45)
--- NOTE | 2020-05-02 19:51 | Discharge Inst-Women's Service ---
Discharge Inst-Women's Serv Depart Medication/Instructions New, Converted or Re-Newed RX: RX on Chart Final Diagnosis POD 1 PLTCS Problems Reviewed?: Yes Consults/Follow Up Additional Follow Up: Yes Orders/Referrals Dr. Mercer in 7-10 days, and in [address] Kam Activity Activity: Activity as Tolerated Driving Instructions: No Driving for 1 Week NO SMOKING: NO SMOKING Nothing Inside Vagina: No Douching, No [place], No Tampons Diet Discharge Diet: No Restrictions Symptoms to Report to : Bleeding Excessive, Pain Increased, Fever Over 101 Degrees F, Vaginal Bleeding Increase, Questions/Concerns For Any Problems or Questions: Contact Your Physician Skin/Wound Care Infection Signs and Symptoms: Increased Redness, Foul Odor of Wound, Increased Drainage, Skin Itchy or Has a Rash, Increased Swelling, Temperature Above 101 F Operative Area Clean and Dry: Keep Incision Clean/Dry Stitches/Wan/Dermabond: Dermabond, Care of Stitches Bathing Instructions: DARRELL Richardson DO May 02, 2020 19:51
[2020-05-02] MEDS ORDERED: DCS100C PO (19:53)
[2020-05-02] MEDS ORDERED: IBUP-844 PO (19:53)
[2020-05-02] MEDS ORDERED: ACHD5005 PO (19:53)
[2020-05-02] MEDS ORDERED: BUPIVACAINE 0.5% 30 ML (SENSORCAINE) VIAL ONE (20:09)
[2020-05-02] MEDS: KETOROLAC 30 MG/ML VIAL IV SCH (20:59)
[2020-05-02] MEDS: OXYTOCIN PRE-MIX DRIP 500 ML IV SCH (21:50)
--- NOTE | 2020-05-02 21:58 | OPERATIVE REPORT ---
DATE OF SERVICE: PREOPERATIVE DIAGNOSES: 1. A 39-year-old female with diamniotic dichorionic twin gestation. 2. Malpresentation. 3. A 34 weeks and 6 days gestation. 4. Active labor. POSTOPERATIVE DIAGNOSES: 1. A 39-year-old female with diamniotic dichorionic twin gestation. 2. Malpresentation. 3. A 34 weeks and 6 days gestation. 4. Active labor. PROCEDURE: Primary low transverse section. SURGEON: Arnol Manzo, ANESTHESIA: Spinal. ESTIMATED BLOOD LOSS: 750 mL. URINE OUTPUT: 80 mL clear at the end of procedure. FLUIDS: 1000 mL lactated Ringer's solution. FINDINGS: A live female infant weighing 3 pounds 14 ounces, Apgars of 7 and 8. A live male infant weighing 3 pounds 10 ounces, Apgars of 8 and 9. Grossly normal appearing uterus, bilateral fallopian tubes and ovaries. SPECIMEN SENT: Placenta. INDICATIONS FOR PROCEDURE: This 39-year-old female is a patient who presented to the labor unit with suspicion of potential contractions and labor. She was found to have made cervical change from 4 to 5 cm under short time on the unit. At which point, malpresentation was diagnosed with presenting twin breech and the second twin vertex. Due to concern of an interlocking twin at delivery, I highly recommended proceeding with primary . Risks of were reviewed the patient, I had actually had the opportunity to see the patient preoperatively in the office. This was discussed at her appointment as well. After all of her questions were answered, she was agreeable to proceed. Consent was obtained, the patient was taken to the operating room. OPERATIVE REPORT IN DETAIL: Once in the operating room, spinal analgesia was found to be adequate. She was placed in supine position with leftward tilt, prepped and draped in normal sterile fashion. Timeout was performed and anesthesia was tested. I then make a Pfannenstiel skin incision with a knife and carried down to underlying fascia using Bovie cautery. The fascial incision extended laterally using Bovie cautery. Superior aspect of the fascial incision was then grasped with Galdino clamps, tented up and dissected off the underlying rectus muscles. The inferior aspect of the fascial incision was then grasped with Galdino clamps, tented upward and dissected off the underlying rectus muscles. Rectus muscle was dissected down the midline using sharp dissection with Garcia scissors, which exposed the peritoneum, which I entered bluntly and extended using blunt traction. An Luis Manuel ring retractor was placed in the peritoneal incision, which offers excellent lateral sidewall retraction. I identified the lower uterine segment, which was found to be thinned out and make a low transverse incision to the vesicouterine peritoneum and bluntly dissected off the lower uterine segment, creating a bladder flap. I then proceeded with my myotomy until membranes were visualized, at which point I extended the uterine incision laterally and superiorly using bandage scissors. At which point, amniotomy was performed using blunt traction. Twin A was found in the complete breech presentation. Twin A's feet and buttocks were elevated up to the incision, delivered up to the upper torso where the arms are delivered by sweeping them across the chest while the infant was in a downward facing position and then with gentle lifting of the infant's body and flexion of the head through the incision, the infant was then brought to the operative field where the cord was doubly clamped and cut and was handed off to waiting pediatricians for further evaluation. Cord from fetus A, which was the female was marked with one cord clamp. Cord blood was collected. I then performed amniotomy on the second fetus, the fetus was in the vertex presentation. With gentle fundal pressure, the infant's head was elevated through the incision where it was delivered. The nares and oropharynx were bulb suctioned. Anterior and posterior shoulders were delivered. was then brought to the operative field where the cord is allowed to pulsate for approximately 60 seconds for delayed cord clamping, at which point I marked this cord with 2 cord clamps, and then it is cut and the infant was handed off to the waiting pediatricians in attendance. Cord blood was collected from this cord as well. However, it is scant due to cord milking and delayed cord clamping. Intact placenta was delivered spontaneously thereafter. IV Pitocin was initiated to facilitate uterine contraction. Uterine fundus confirmed by manual massage. The uterus was exteriorized and cleared of all endometrial clots and debris. I then proceeded with closing the uterine incision using 0 Vicryl suture in a running locked fashion. Second layer of imbricating 0 Monocryl was placed. Excellent hemostasis was noted after doing this. I then placed the uterus back in the pelvis and copiously irrigated the pelvis using normal saline. Once again, there was no active bleeding noted from any of my dissection planes. I placed Interceed antiadhesive over my low transverse incision and removed the Luis Manuel ring retractor. I then proceeded with closing the peritoneum using 3-0 Vicryl suture in running fashion. The rectus muscles were reapproximated using 3-0 Vicryl suture in interrupted fashion. The fascia was reapproximated using 0 Vicryl suture in running fashion. Subcutaneous tissue was reapproximated using 3-0 plain interrupted subcutaneous stitch and skin reapproximated using 4-0 Monocryl in a subcuticular. Dermabond was applied to incision and sterile dressing was adhesed with white tape. Two grams of Ancef given preoperatively for infection prophylaxis. Job ID: [id number] DocumentID: [id number] Dictated Date: 05/02/2020 21:30:25 [employer] Gift [employer] Merchandising Date: 05/02/2020 21:57:22 Dictated By: ARNOL MANZO DO
[2020-05-02] MEDS: CATHETER FLUSH 10 ML SYR IV SCH (22:59)
[2020-05-03] MEDS ORDERED: diphenhydrAMINE 50 MG/ML INJ (BENADRYL) ONE (00:22)
[2020-05-03] MEDS ORDERED: diphenhydrAMINE 50 MG/ML INJ (BENADRYL) IVP PRN (00:30)
[2020-05-03] MEDS: DOCUSATE SODIUM 100 MG (COLACE) CAP PO SCH ×2 (00:34→08:22)
[2020-05-03] MEDS: OXYTOCIN PRE-MIX DRIP 500 ML IV SCH (01:48)
[2020-05-03] MEDS: CATHETER FLUSH 10 ML SYR IV SCH ×3 (01:58→13:33)
[2020-05-03] MEDS: KETOROLAC 30 MG/ML VIAL IV SCH ×3 (01:59→13:33)
[2020-05-03 03:35] VITALS: BP 133/67
[2020-05-03] MEDS: HYDROcodone/APAP 5 MG/325 MG (LORTAB) TAB PO PRN ×2 (04:38→11:07)
[2020-05-03 05:44] LABS: BASOPHILS % (AUTO) 0 % (0-10); EOSINOPHILS % (AUTO) 0 % (0-10); HEMATOCRIT 34 % (35-52); HEMOGLOBIN 11.8 g/dL (11.5-16.0); LYMPHOCYTES # (AUTO) 1.2 10^3/uL (1.0-4.0); LYMPHOCYTES % (AUTO) 8 % (12-44); MEAN CORPUSCULAR HEMOGLOBIN 31 pg (25-34); MEAN CORPUSCULAR HGB CONC 35 g/dL (32-36); MEAN CORPUSCULAR VOLUME 87 fL (80-99); MEAN PLATELET VOLUME 12.2 fL (9.0-12.2); MONOCYTES # (AUTO) 0.5 10^3/uL (0.0-1.0); MONOCYTES % (AUTO) 3 % (0-12); NEUTROPHILS # (AUTO) 12.9 10^3/uL (1.8-7.8); NEUTROPHILS % (AUTO) 88 % (42-75); PLATELET COUNT 174 10^3/uL (130-400); WHITE BLOOD COUNT 14.6 10^3/uL (4.3-11.0)
--- NOTE | 2020-05-03 07:17 | Postpartum Progress Note ---
Note Note Day # 1 Subjective: Patient is without complaints. Ambulating, voiding. Tolerating a regular diet without nausea or vomiting. Normal lochia. Pain is well controlled with oral pain medications. Objective: Physical Exam: General - Alert and oriented, no apparent distress Abdomen - Soft, appropriately tender to palpation, non-distended, fundus firm at umbilicus Extremities - no edema, negative Rocio's bilaterally Incision- c/d/i Assessment: POD 1 PLTCS Tobacco use in Plan: Routine care. Encourage breast feeding. Encourage ambulation. Ferrous sulfate supplementation. Plan for discharge tomorrow Vitals - Labs Vital Signs - I&O Vital Signs Date Time Temp Pulse Resp B/P (MAP) Pulse Ox O2 Delivery O2 Flow Rate FiO2 05/03/20 03:35 36.6 47 18 133/67 (89) 97 Room Air 05/02/20 22:55 36.4 71 18 144/86 (105) 98 Room Air 05/02/20 22:29 36.6 89 18 159/80 (106) 05/02/20 21:52 36.6 90 18 167/94 (118) 05/02/20 21:37 Room Air 05/02/20 21:35 Room Air 05/02/20 21:35 36.3 18 132/82 (99) 100 Room Air 05/02/20 21:30 8 135/78 (97) 100 Room Air 05/02/20 21:30 18 135/78 (97) 100 Room Air 05/02/20 21:20 18 139/80 (99) 100 Room Air 05/02/20 21:20 Room Air 05/02/20 21:10 18 129/89 (102) 100 Room Air 05/02/20 21:06 Room Air 05/02/20 21:00 18 120/71 (87) 99 Room Air 05/02/20 21:00 Room Air 05/02/20 20:55 18 121/68 (85) 100 Room Air 05/02/20 20:47 Room Air 05/02/20 20:47 36.3 18 119/65 (83) 99 Room Air 05/02/20 18:20 37.2 80 18 99 Room Air 05/02/20 18:18 37.2 80 18 Room Air I & O 05/03/20 07:00 Intake Total 2650 ml Output Total 1105 ml Balance 1545 ml Labs Laboratory Tests 05/02/20 18:00: White Blood Count 12.6H, Red Blood Count 4.40, Hemoglobin 13.4, Hematocrit 38, Mean Corpuscular Volume 87, Mean Corpuscular Hemoglobin 31, Mean Corpuscular Hemoglobin Concent 35, Red Cell Distribution Width 14.4, Platelet Count 227, Mean Platelet Volume 12.4H, Immature Granulocyte % (Auto) 1, Neutrophils (%) (Auto) 65, Lymphocytes (%) (Auto) 25, Monocytes (%) (Auto) 9, Eosinophils (%) (Auto) 1, Basophils (%) (Auto) 0, Neutrophils # (Auto) 8.1H, Lymphocytes # (Auto) 3.1, Monocytes # (Auto) 1.2H, Eosinophils # (Auto) 0.1, Basophils # (Auto) 0.0, Immature Granulocyte # (Auto) 0.1 05/02/20 18:58: 05/03/20 05:00: White Blood Count 14.6H, Red Blood Count 3.87, Hemoglobin 11.8, Hematocrit 34L, Mean Corpuscular Volume 87, Mean Corpuscular Hemoglobin 31, Mean Corpuscular Hemoglobin Concent 35, Red Cell Distribution Width 14.3, Platelet Count 174, Mean Platelet Volume 12.2, Immature Granulocyte % (Auto) 1, Neutrophils (%) (Auto) 88H, Lymphocytes (%) (Auto) 8L, Monocytes (%) (Auto) 3, Eosinophils (%) (Auto) 0, Basophils (%) (Auto) 0, Neutrophils # (Auto) 12.9H, Lymphocytes # (Auto) 1.2, Monocytes # (Auto) 0.5, Eosinophils # (Auto) 0.0, Basophils # (Auto) 0.0, Immature Granulocyte # (Auto) 0.1 DARRELL MANZO DO May 03, 2020 07:17
--- NOTE | 2020-05-03 07:20 | Anesthesia-Regional Post-Op ---
Regional Patient Condition Mental Status: Alert, Oriented x3 Circulation: Same as Pre-Op Headache: Absent Sensation: Full Recovery Motor Block: Absent Post Op Complications Complications None Follow Up Care/Instructions Patient Instructions None needed. Anesthesia/Patient Condition Patient is doing well, no complaints, stable vital signs, no apparent adverse anesthesia problems. No complications reported per nursing. D/C home per [facility] [place] Criteria: VIRI Vila CRNA May 03, 2020 07:20
[2020-05-03 07:51] VITALS: BP 124/72
[2020-05-03] MEDS ORDERED: busPIRone 10 MG (BUSPAR) TAB PO SCH (09:00)
[2020-05-03 11:09] VITALS: BP 137/66
[2020-05-03 15:21] VITALS: BP 152/67
[2020-05-03 17:45] VITALS: BP 152/67
[2020-05-03] MEDS ORDERED: IBUPROFEN 600 MG (MOTRIN) TAB PO SCH (19:45)
== END 2020-05-03 17:45 | disposition home or self-care (01) | DRG 788 ==
LOC: WSo 17:02 → LDRP 17:02 → WSo 19:07 → LDRP 19:08 → WS 22:44
PROVIDERS: ADMIT Obstetrics & Gynecology; ATTEND Obstetrics & Gynecology
PROC: 10D00Z1 Extraction of Products of Conception, Low, Open Approach (ICD-10-PCS; principal; 2020-05-02 19:45)
DX: O60.14X0 Preterm labor third trimester with preterm delivery third trimester, not applicable or unspecified (principal); Z3A.34 34 weeks gestation of pregnancy; O30.043 Twin pregnancy, dichorionic/diamniotic, third trimester; Z37.2 Twins, both liveborn; O32.9XX0 Maternal care for malpresentation of fetus, unspecified, not applicable or unspecified; O99.334 Smoking (tobacco) complicating childbirth; F17.210 Nicotine dependence, cigarettes, uncomplicated; Z20.822 Contact with and (suspected) exposure to COVID-19; O99.344 Other mental disorders complicating childbirth; F31.9 Bipolar disorder, unspecified; F41.9 Anxiety disorder, unspecified; O99.62 Diseases of the digestive system complicating childbirth; K58.9 Irritable bowel syndrome, unspecified; G89.29 Other chronic pain; M54.5 Low back pain; Z88.2 Allergy status to sulfonamides
CPT/HCPCS: 36415; 83033; 85025; 86850; 86870; 86900; 86901; 87635; 90715; 94664; 99212